=== PATIENT | male | born 1965 | race Caucasian/White ===

== ENCOUNTER 2019-11-23 17:28 | Emergency (ER) | payer BC ==
[~2019-11-23] VITALS: Ht 175.2 cm; Wt 86.2 kg
[~2019-11-23 17:28] MED LIST: ASPIRIN81 M1 PO; CLARITIN10 MG PO; FISH OIL; FLONASE ALLERG9.9 ML NAS; Ipratropium Brom3 ML INH; MOTRIN800 MG PO; MULTIVITAMIN1 CTB PO; PREDNISONE10 MG PO
[2019-11-23 17:34] VITALS: BP 133/78
== END 2019-11-23 21:04 | disposition home or self-care (01) ==
LOC: ED 17:28
DX: R51 Headache (principal); E78.00 Pure hypercholesterolemia, unspecified; Z79.899 Other long term (current) drug therapy; Z79.82 Long term (current) use of aspirin